=== PATIENT | female | born 1960 | race Caucasian/White ===

== ENCOUNTER 2017-09-26 08:23 | Emergency (ER) | payer SELFPAY ==
[2017-09-26 08:32] VITALS: BP 128/79
--- NOTE | 2017-09-26 10:17 | UC ---
Nimco Avalos Tenzin, scribed for Ranjeet Aguilar MD on 09/26/17 at 0845 . Skin Complaint HPI - HPI Summary HPI Summary: Pt is a 56 years old female presenting to the complaining of redness and itchiness on bilateral shins since three days ago. Pt notes that she thought it was poison fatuma, treated with calamine. She reports it has been itchy on on bilateral legs. Pt is also complaining of bumps that appear on the skin since yesterday. Denies fever, chills, cough, N/V/D. Pt notes little sore throat, rings in her ear. She also notes she gets allergy. Benadryl did not helped her. She also noted that she tried to wash with cold water without much help. No aggravating factors were noted. - History of Current Complaint Chief Complaint: UCSkin Time Seen by Provider: 09/26/17 08:27 Stated Complaint: SKIN COMPLAINT Hx Obtained From: Patient Hx Last Menstrual Period: YEARS Pain Intensity: 0 - Allergy/Home Medications Allergies/Adverse Reactions: Allergies Allergy/AdvReac Type Severity Reaction Status Date / Time clindamycin Allergy See Comment Verified 09/26/17 08:33 naproxen Allergy Swelling Verified 09/26/17 08:33 Home Medications: Home Medications diphenhydrAMINE HCl [Benadryl Allergy 25 MG CAP] 25 mg PO Q6H PRN 09/26/17 [ History Confirmed 09/26/17] Review of Systems Constitutional: Negative Skin: Rash Eyes: Negative ENT: Sore Throat Respiratory: Negative Cardiovascular: Negative Gastrointestinal: Negative Genitourinary: Negative Motor: Negative Neurovascular: Negative Musculoskeletal: Negative Neurological: Negative Psychological: Negative All Other Systems Reviewed And Are Negative: Yes - Comments Additional Review of Systems Comments: POSITIVE: RASH AND REDNESS ON BILATERAL LEGS, SORE THROAT MILD, EAR RINGS NEGATIVE: FEVER, CHILLS, N/V/D, COUGHS. PMH/Surg Hx/FS Hx/Imm Hx - Additional Past Medical History Additional PMH: NEGATIVE: [place], CVA. - Surgical History Surgical History: Yes Surgery Procedure, Year, and Place: 2 csections, WISDOM TEETH EXTRACTION - Family History Known Family History: Positive: None, Other - Pt denies any relevant family history. - Social History Alcohol Use: None Substance Use Type: None Smoking Status (MU): Never Smoked Tobacco Physical Exam - Summary Physical Exam Summary: General: well-appearing, no pain distress Skin: warm, color reflects adequate perfusion, dry Head: normal Eyes: EOMI, [place] ENT: normal Neck: supple, nontender Respiratory: CTA, breath sounds present Cardiovascular: RRR Abdomen: soft, nontender Bowel: present Musculoskeletal: normal, strength/ROM intact Neurological: sensory/motor intact, A&O x3 Psychological: affect/mood appropriate RIGHT REAGAN: ERYTHAMATOUS BLANCHING SLIGHTLY RAISED RASH 15 CM x 5CM. SMALLER AREA, 4 CM ON MEDIAL ASPECT OF THE THIGH, NO STREAKING OR DRAINAGE. LEFT REAGAN: SIMILAR RASH, 3CM IN DIAMETER. Triage Information Reviewed: Yes Vital Signs: Initial Vital Signs Temp 98.3 F 09/26/17 08:28 Pulse 84 09/26/17 08:28 Resp 16 09/26/17 08:28 BP 128/79 09/26/17 08:28 Pulse Ox 96 09/26/17 08:28 Vital Signs Reviewed: Yes Course/Dx - Course Course Of Treatment: RASH APPEARS MORE LIKE A CONTACT DERMATITIS. CELLULITIS IS ALSO POSSIBLE. WILL TREAT WITH KEFLEX. START PREDNISONE IF NOT IMPROVED. WILL GET RECHECK IF WORSE. - Diagnoses Provider Diagnoses: RASH B/L LOWER LEGS Discharge - Sign-Out/Discharge Documenting (check all that apply): Discharge/Admit/Transfer - Discharge Plan Condition: Stable Disposition: HOME Prescriptions: Cephalexin CAP* [Keflex CAP*] 500 mg PO TID #40 cap predniSONE TAB* [Deltasone 20 MG TAB*] 40 mg PO DAILY PRN #10 tab PRN Reason: Rash Patient Education Materials: Acute Rash (ED) Referrals: [facility] [Outside] Additional Instructions: FOLLOW UP WITH YOUR DOCTOR. GET RECHECKED FOR ANY WORSENING OF YOUR CONDITION; FEVER, YOU FEEL ILL, THE RASH SPREADS OR QUESTIONS OR CONCERNS. - Billing Disposition and Condition Condition: STABLE Disposition: Home The documentation as recorded by the Nimco riggins Tenzin accurately reflects the service I personally performed and the decisions made by me, Ranjeet Aguilar MD.
== END 2017-09-26 08:52 | disposition home or self-care (01) ==
LOC: UCEAST 08:23
DX: R21 Rash and other nonspecific skin eruption (principal)
CPT/HCPCS: 99212; G0463

== ENCOUNTER 2018-12-09 14:05 | Emergency (ER) | payer SELFPAY ==
[2018-12-09 14:29] VITALS: BP 133/76
[2018-12-09] MEDS ORDERED: Tetan/Diph/Pertus SYR(Tdap)* 0.5 ML SYR(BOOSTRIX) use SYR IM ONE (15:07)
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
== END 2018-12-09 15:25 | disposition home or self-care (01) ==
LOC: UCEAST 14:05
DX: S00.01XA Abrasion of scalp, initial encounter (principal); W07.XXXA Fall from chair, initial encounter; Y92.017 Garden or yard in single-family (private) house as the place of occurrence of the external cause; E11.9 Type 2 diabetes mellitus without complications; Z23 Encounter for immunization
CPT/HCPCS: 90471; 90715; 99211; G0463